=== PATIENT | female | born 1975 | race Caucasian/White ===

== ENCOUNTER 2019-01-03 09:21 | Day surgery (SDC) | payer BC ==
[~2019-01-03 09:21] MED LIST: ACETAMINOPHEN 1,000 MG/100 ML BTL IVPB ONE; FAMOTIDINE 20MG TABLET PO ONE; METOCLOPRAMIDE 10 MG TABLET PO ONE; SCOPOLAMINE 1 PATCH TDSY TD ONE
[2019-01-03] MEDS ORDERED: PROPOFOL 10 MG/ML VIAL IV ONE (09:22)
[2019-01-03] MEDS ORDERED: ONDANSETRON HCL IV 4 MG/2 ML VIAL IVP ONE (09:22)
[2019-01-03] MEDS ORDERED: DEXAMETHASONE 4 MG/ML 1ML VIAL IVP ONE (09:22)
[2019-01-03] MEDS ORDERED: KETOROLAC 30 MG/ML VIAL IVP ONE (09:22)
[2019-01-03] MEDS ORDERED: FENTANYL PF 100MCG/2ML VIAL IV ONE (09:22)
[2019-01-03] MEDS ORDERED: MIDAZOLAM HCL 2MG/2ML VIAL IV ONE (09:22)
[2019-01-03] MEDS ORDERED: LIDOCAINE 2% MDV (20MG/ML) 20ML VIAL IV ONE (09:22)
[2019-01-03] MEDS ORDERED: SEVOFLURANE 250 ML INH ONE (09:22)
[2019-01-03] MEDS ORDERED: RINGERS SOLUTION,LACTATED 1,000 ML IV ONE (10:12)
[2019-01-03] MEDS ORDERED: BUPIVACAINE 0.25% W/EPI MPF 30ML VIAL SQ ONE (11:19)
[2019-01-03] MEDS ORDERED: HYDROCODONE/APAP 7.5/325MG TABLET PO PRN (12:06)
--- NOTE | 2019-01-04 17:20 | Operative Note ---
DATE OF SURGERY: 01/03/2019 SURGEON: Flako Jerez DO PREOPERATIVE DIAGNOSIS: Chondromalacia of the right knee. POSTOPERATIVE DIAGNOSIS: Chondromalacia medial femoral condyle and patella, right knee. OPERATION: Arthroscopic chondroplasty medial femoral condyle and patella, right knee. DESCRIPTION OF PROCEDURE: This 43-year-old female was taken to the operating room and placed in the supine position on the operating room table where general anesthesia was induced. The right lower extremity was elevated, exsanguinated, and the tourniquet inflated to 300 mmHg. Arthroscopic knee slater applied. Right knee prepped with Hibiclens and draped in the usual sterile fashion. An inferolateral portal was established for the 4 mm arthroscope, and initial evaluation of the joint demonstrated normal appearance of the suprapatellar pouch but there was a significant amount of loose cartilaginous bodies floating free within the suprapatellar pouch, and these were evacuated from the joint. The patella was examined and the center of the median ridge demonstrated a small area of grade 2 changes with a loose fragment of cartilage being present there and the rotating shaver was placed through an inferomedial portal and chondroplasty was performed to stabilize this area. Trochlea appeared normal. The medial gutter and lateral gutters were examined and found to contain loose cartilaginous bodies, and these were evacuated from the joint. The medial compartment was entered, and multiple flakes of articular cartilage were present floating free within the joint, and these were suctioned from the joint with the rotating shaver. There was extensive chondromalacia of the medial femoral condyle with grade 3 changes noted as far back posteriorly as we could see all the way to the meniscal rest. No normal articular cartilage was present. Grade 3 changes were present. The medial meniscus was probed throughout its entirety and found to be normal. The intracondylar notch was examined and found to be normal. The lateral compartment was entered, and probing of the lateral meniscus and articular cartilage of the lateral compartment did not reveal any pathology. The joint was copiously irrigated and suctioned. All areas reexamined and no additional findings were present. The joint was suctioned. The instruments were removed. The portals infiltrated with 0.25% Marcaine with epinephrine. Sterile dressings applied, tourniquet and knee slater released, and the patient taken to the recovery room in satisfactory condition. GROSS PATHOLOGY: This patient demonstrated chondromalacia grade 2 of the patella and grade 3 of the entire weightbearing surface of the medial femoral condyle. As stated above, no meniscal tears were identified. MTDD
== END 2019-01-03 12:35 | disposition home or self-care (01) ==
LOC: SUR 09:21
PROVIDERS: ATTEND Orthopaedic Surgery
DX: M32.9 Systemic lupus erythematosus, unspecified (principal); J45.20 Mild intermittent asthma, uncomplicated; G43.909 Migraine, unspecified, not intractable, without status migrainosus; M94.261 Chondromalacia, right knee; M79.7 Fibromyalgia; D84.9 Immunodeficiency, unspecified
CPT/HCPCS: 29877; 01400; 85025; 80053; 81003; 84443; 80061; 81025; J1885; J2405; J3010; J7120